=== PATIENT | male | born 1955 | race Two or more races ===

== ENCOUNTER → 2023-08-21 06:31 | Outpatient (REF) | payer OTHER, SELFPAY ==
[2023-08-22 10:50] LABS: CRP, Highly Sensitive 2.43 mg/L
[2023-08-22 20:48] LABS: Lipoprotein a (Lp a) 27 mg/dL (<=29)
== END ==
LOC: REG 06:31
PROVIDERS: ATTENDING PHYSICIAN Internal Medicine Cardiovascular Disease
DX: E11.9 Type 2 diabetes mellitus without complications (principal); Z95.5 Presence of coronary angioplasty implant and graft; E78.5 Hyperlipidemia, unspecified; I20.9 Angina pectoris, unspecified
CPT/HCPCS: 36415; 83695; 86141